=== PATIENT | female | born 1935 | race Caucasian/White ===

== ENCOUNTER 2017-02-13 17:36 | Emergency (ER) | payer OTHER ==
[~2017-02-13] VITALS: Ht 165.1 cm; Wt 92.0 kg
[~2017-02-13 17:36] MED LIST: ALPR0.25 PO; AMOX500T PO; ASPI1TAB7 PO; BIOT5000 PO; CALC-197 PO; CENTTAB9 PO; CETI10 PO; CORE3.12 PO; DEPA250T2 PO; FIORIC PO; FISHCAP PO; GARL1000 PO; MECL-62 PO; PROB1TAB PO; VITA400C70 PO; VITATAB11 PO; WELL200T PO
[2017-02-13 17:40] VITALS: BP 189/86; PULSE 66; RESP 20; TEMP 98.4; O2SAT 98
[2017-02-13] MEDS ORDERED: SODIUM CHLOR 0.9% 1000 ML INJ 1,000 ML IV ONE (19:30)
[2017-02-13] MEDS ORDERED: ONDANSETRON HCL 4 MG/2 ML VIAL IV ONE (19:30)
--- NOTE | 2017-02-13 19:37 | PD ---
HPI Chief Complaint: GI Complaint Time Seen by Provider: 19:18 Travel History International Travel<30 days: No Contact w/Intl Traveler<30days: No Traveled to known affect area: No History of Present Illness HPI The patient is a 81 year old female who presents to the [facility] emergency department with a history of projectile vomiting with moving her bowels that began approximately a month ago. She reports that she did see her primary care physician, Dr. Fajardo regarding this this past week. She reports that stool studies were done at that time, however she has not heard about the results. The patient reports that his symptoms were worsening that she decided to come to the emergency department today. She reports that she was previously followed by [facility] that is no longer in the area. She reports that she has recently been referred to Dr. Velasquez with a new appointment pending. The patient reports that she does have a history of C. difficile colitis that was resistant to treatment for approximate 7 months of the year 2012. The patient reports today that she's had bowel movements approximately every hour. She reports that her stools are light brown in color. She denies having any blood or mucus in her stool. She denies any sick contacts, recent antibiotic use, foreign travel, or camping. She reports having nausea today but no vomiting. I review systems, the patient reports having chronic shortness of breath over the last year. She reports that this is followed by . She reports that she was recently started on an albuterol inhaler. The patient denies any recent fevers, cough, congestion, neck pain, chest pain, new urinary symptoms, or neurologic symptoms. FORMERLY [facility], [facility]–1983 Past Medical History Narrative Medical The patient's past medical history is significant for mild coronary artery disease that is medically managed according to a cardiac catheterization, history of a leaky heart valve, history of C. difficile colitis in 2013, history of COPD, history of hypertension, hyperlipidemia, history of migraine headaches, history of arthritis, 5 years ago history of cholangitis Hx Anticoagulant Therapy: Yes Arthritis: Yes Asthma: Yes Autoimmune Disease: No Blood Disorders: No Anxiety: Yes Depression: Yes Heart Rhythm Problems: No Cancer: No Cardiac Catheterization: Yes (08/30) Cardiovascular Problems: Yes (CAD) High Cholesterol: Yes Chest Pain: No Congestive Heart Failure: No COPD: No Cerebrovascular Accident: Yes Coronary Artery Disease: Yes Diabetes: No Diminished Hearing: No Endocrine: No Gastrointestinal Disorders: No GERD: Yes Genitourinary: Yes Hiatal Hernia: No Hypertension: Yes Immune Disorder: No Implanted Vascular Access Dvce: Yes Kidney Stones: No Musculoskeletal: Yes Neurologic: Yes Psychiatric: Yes (CLAUSTROPHOBIA) Reproductive: No Respiratory: Yes (SLEEP APNEA) Immunizations Current: No Migraines: Yes Renal Failure: No Seizures: No Sleep Apnea: Yes (uses c-pap) Thyroid Disease: No Ulcer: No Menopausal: Yes Past Surgical History Narrative Surgical The patient's past surgical history is significant for a right total knee arthroplasty, left total arthroplasty. The patient has a history of 2 prior cardiac catheterizations without any angioplasty or stenting required. The patient has a history of hysterectomy. Abdominal Surgery: No Body Medical Devices: right groin vascular closure Cardiac Surgery: Yes (HEART CATH X 2) Ear Surgery: No Endocrine Surgery: No Eye Surgery: No Genitourinary Surgery: Yes (bladder suspension and repair ureter repair dilatation) Gynecologic Surgery: Yes (uterine suspension,hysterectomy) Hysterectomy: Yes Joint Replacement: Yes (BILAT TOTAL KNEES) Neurologic Surgery: No Oral Surgery: No Pacemaker: No Thoracic Surgery: No Other Surgery: Yes Social History Alcohol Use: No Tobacco Use: No Substance Use: No Allergies-Medications (Allergen,Severity, Reaction): Coded Allergies: Levaquin (Verified Allergy, Severe, NAUSEA/BLADDER PROBLEMS, 02/13/17) Urecholine (Verified Allergy, Severe, 02/13/17) b/p dropped Cipro (Unverified Adverse Reaction, Severe, CONSTRICTS BLADDER, 02/13/17) Reported Meds & Prescriptions Reported Meds & Active Scripts Active Zofran Odt (Ondansetron Odt) 4 Mg Tab 4 Mg SL Q6HR PRN Reported Xanax (Alprazolam) 0.5 Mg Tab 0.5 Mg PO TID PRN Amoxicillin 500 Mg Cap 2,000 Mg PO ONCE Aspirin 81 Mg Tabdr 81 Mg PO DAILY B Complex (B-Complex W/ Folic Acid) 1 Tab 1 Tab PO DAILY Biotin 10 Mg Tab 10 Mg PO DAILY Wellbutrin SR 12 HR (Bupropion HCl) 200 Mg Tab 200 Mg PO Q12HR Caltrate 600+D (Calcium Carbonate-Cholecalciferol) 600-800 Mg-Unit Tab 1 Tab PO BID Carvedilol 3.125 Mg Tab 3.125 Mg PO BID Zyrtec Allergy (Cetirizine HCl) 10 Mg Tab 10 Mg PO DAILY Depakote DR (Divalproex Sodium) 250 Mg Tabdr 250 Mg PO BID Garlic 1,000 Mg Cap 1,000 Mg PO DAILY Meclizine 25 (Meclizine HCl) 25 Mg Tab 25 Mg PO BID PRN Multi Vitamin and Mineral (Multiple Vitamins W/ Minerals) 1 Tab Tab 1 Tab PO DAILY Silver Point-3 1000 mg (Silver Point-3 Fatty Acids) 1 Cap Cap 1 Cap PO DAILY Probiotic (Probiotic Product) 1 Tab Tab 1 Tab PO DAILY Alph-E (Vitamin E) 400 Unit Cap 400 Units PO DAILY Review of Systems Except as stated in HPI: all other systems reviewed are Neg General / Constitutional: No: Fever Eyes: No: Visual changes HENT: No: Headaches Cardiovascular: No: Chest Pain or Discomfort Respiratory: Positive: Shortness of Breath (chronic shortness of breath) Gastrointestinal: Positive: Nausea, Vomiting, Diarrhea, Abdominal Pain, Changes in Bowel Habits Genitourinary: No: Dysuria Musculoskeletal: No: Pain Skin: No Rash Neurologic: No: Weakness Psychiatric: No: Depression Endocrine: No: Polydipsia Hematologic/Lymphatic: No: Easy Bruising Physical Exam Narrative General: The patient is a well-developed well-nourished female in no acute distress. Head and Neck exam: Head is normocephalic atraumatic. Eyes: EOMI, pupils are equal round and reactive to light. Nose: Midline septum with pink mucous membranes Mouth: Dentition unremarkable. Moist mucus membranes. Posterior oropharynx is not erythematous. No tonsillar hypertrophy. Uvula midline. Airway patent. Neck: No palpable lymphadenopathy. No nuchal rigidity. No thyromegaly. Cardiovascular: Regular rate and rhythm without murmurs, gallops, or rubs. Lungs: Clear to auscultation bilaterally. No wheezes, rhonchi, or rales. Abdomen: Soft, with tenderness on palpation of the midepigastric area and bilateral lower quadrants of the abdomen and suprapubic area, no focal tenderness over McBurney's point. Negative Vaughan's sign. No guarding, rebound, or rigidity. Normal bowel sounds are audible. Extremities: No clubbing, cyanosis, or edema. 2+ pulses in all 4 extremities. No calf tenderness on palpation. Back: No spinous process tenderness to palpation. No costovertebral angle tenderness to palpation. Neurologic Exam: Grossly nonfocal. Skin Exam: No rash noted. Intact skin that is warm and dry. Data Data Last Documented VS Vital Signs Date Time Temp Pulse Resp B/P Pulse Ox O2 Delivery O2 Flow Rate FiO2 02/13/17 19:58 63 18 98 02/13/17 17:40 98.4 189/86 Room Air Orders Electrocardiogram (02/13/17 19:20) Complete Blood Count With Diff (02/13/17 19:20) Comprehensive Metabolic Panel (02/13/17 19:20) C-Reactive Protein (Crp) (02/13/17 19:20) Lipase (02/13/17 19:20) Urinalysis - C+S If Indicated (02/13/17 19:20) Westergren Sedimentation Rate (02/13/17 19:20) Magnesium (Mg) (02/13/17 19:20) Valproic Acid (Depakene) (02/13/17 19:20) Enteric Path (Stool) (02/13/17 19:20) C Diff Toxin Pcr (02/13/17 19:20) Chest, Single Ap (02/13/17 19:20) Iv Access Insert/Monitor (02/13/17 19:20) Ecg Monitoring (02/13/17 19:20) Oximetry (02/13/17 19:20) Stool Wbc (Leukocytes) (02/13/17 19:20) Lactic Acid Sepsis Protocol (02/13/17 19:20) Sodium Chlor 0.9% 1000 Ml Inj (Ns 1000 M (02/13/17 19:30) Ondansetron Inj (Zofran Inj) (02/13/17 19:30) Ct Abd/Pel W Iv Contrast(Rout) (02/13/17 20:08) Iohexol 350 Inj (Omnipaque 350 Inj) (02/13/17 21:06) Labs Laboratory Tests Test 02/13/17 02/13/17 19:40 19:45 Urine Color LIGHT-YELLOW Urine Turbidity CLEAR Urine pH 7.0 Urine Specific Thayer 1.006 Urine Protein NEG mg/dL Urine Glucose (UA) NEG mg/dL Urine Ketones NEG mg/dL Urine Occult Blood NEG Urine Nitrite NEG Urine Bilirubin NEG Urine Urobilinogen LESS THAN 2.0 MG/DL Urine Leukocyte Esterase LARGE Urine RBC LESS THAN 1 /hpf Urine WBC 7 /hpf Urine Squamous Epithelial 1 /hpf Cells Microscopic Urinalysis Comment CULT NOT INDICATED White Blood Count 5.2 TH/MM3 Red Blood Count 4.59 MIL/MM3 Hemoglobin 14.2 GM/DL Hematocrit 41.0 % Mean Corpuscular Volume 89.3 FL Mean Corpuscular Hemoglobin 30.9 PG Mean Corpuscular Hemoglobin 34.6 % Concent Red Cell Distribution Width 13.0 % Platelet Count 227 TH/MM3 Mean Platelet Volume 9.0 FL Neutrophils (%) (Auto) 52.4 % Lymphocytes (%) (Auto) 33.2 % Monocytes (%) (Auto) 11.1 % Eosinophils (%) (Auto) 2.7 % Basophils (%) (Auto) 0.6 % Neutrophils # (Auto) 2.7 TH/MM3 Lymphocytes # (Auto) 1.7 TH/MM3 Monocytes # (Auto) 0.6 TH/MM3 Eosinophils # (Auto) 0.1 TH/MM3 Basophils # (Auto) 0.0 TH/MM3 CBC Comment DIFF FINAL Differential Comment Erythrocyte Sedimentation Rate 12 mm/hr Sodium Level 139 MEQ/L Potassium Level 4.5 MEQ/L Chloride Level 104 MEQ/L Carbon Dioxide Level 27.8 MEQ/L Anion Gap 7 MEQ/L Blood Urea Nitrogen 17 MG/DL Creatinine 0.99 MG/DL Estimat Glomerular Filtration 54 ML/MIN Rate Random Glucose 87 MG/DL Lactic Acid Level 0.5 mmol/L Calcium Level 9.4 MG/DL Magnesium Level 2.2 MG/DL Total Bilirubin 0.4 MG/DL Aspartate Amino Transf 33 U/L (AST/SGOT) Alanine Aminotransferase 22 U/L (ALT/SGPT) Alkaline Phosphatase 67 U/L C-Reactive Protein 0.40 MG/DL Total Protein 7.7 GM/DL Albumin 3.7 GM/DL Lipase 174 U/L Valproic Acid (Depakene) Level 50 MCG/ML MDM Medical Decision Making Medical Screen Exam Complete: Yes Emergency Medical Condition: Yes Medical Record Reviewed: Yes Interpretation(s) Last Impressions Abdomen/Pelvis CT 02/13/172007 Signed Impressions: Service Date/Time: Monday, February 13, 2017 20:57 - CONCLUSION: Negative CT abdomen/pelvis with contrast. Osmany Benson MD Chest X-Ray 02/13/171919 Signed Impressions: Service Date/Time: Monday, February 13, 2017 19:28 - CONCLUSION: The lungs are clear. Osmany Benson MD Differential Diagnosis Diverticulitis, versus colitis, versus, gastroenteritis, versus dehydration, versus electrolyte derangements Narrative Course During the course of the patients emergency department visit, the patients history, examination, and differential diagnosis were reviewed with the patient. The patient had IV access obtained and blood work sent for analysis. The patient was placed on a monitoring analyst with oximetry and blood pressure monitoring. A CT scan of the abdomen and pelvis has been ordered. An EKG was done on arrival that shows a sinus rhythm of 63, no acute ST segment elevation, or depression, T waves are inverted in V1. The patient was initially provided normal saline 1 L IV fluid bolus, Zofran 4 mg IV. The patients laboratory studies were reviewed and remarkable for a white count of 5.2, hemoglobin 14.2, platelets 227 with a monocytosis at 11.1, sedimentation rate is 12 , lactic acid 0.5, C-reactive protein 0.4, CMP is unremarkable and lipase 174, urinalysis shows large leukocyte esterase 7 WBCs, valproic acid level is 50 Radiology studies were reviewed and remarkable for an x-ray that shows no acute abnormality. CT scan of the abdomen and pelvis showed no acute abnormality. The patient was was reexamined and will be discharged home with a prescription for a nausea medication. The patient reports that she has a follow-up appointment scheduled with the colorectal physician, Dr. Velasquez for follow-up on February 28. The patient is resting comfortably and feels better, is alert and in no distress. The patients results and examination findings were discussed with the patient. The repeat examination is unremarkable and benign. The history, exam, diagnostic testing, and current condition do not suggest any significant pathology to warrant further testing, continued ED treatment, admission, or surgical evaluation at this point. The vital signs have been stable. The patient does not have uncontrollable pain, intractable vomiting, or other significant symptoms. The patient's condition is stable and appropriate for discharge. The patient will pursue further outpatient evaluation with a primary care physician or other designated or consulting physician as indicated in the discharge instructions. The patient expressed understanding and was agreeable with this plan. Diagnosis Primary Impression: Vomiting Qualified Code: R11.2 - Non-intractable vomiting with nausea, unspecified vomiting type Additional Impression: Diarrhea Qualified Code: R19.7 - Diarrhea, unspecified type Referrals: Lock Operator 1 week Primary Care Physician 3 days Patient Instructions: Acute Diarrhea (ED), Acute Nausea and Vomiting (ED), General Instructions Med/Other Pt SpecificInfo: Prescription(s) given Scripts Ondansetron Odt (Zofran Odt)4 Mg Tab4 Mg SL Q6HR PRN (Nausea/Vomiting) #7 TAB Ref 0 Prov:Alicia Miranda MD 02/13/17 Disposition: 01 DISCHARGE HOME Condition: Stable Alicia Miranda MD Feb 13, 2017 19:36
--- NOTE | 2017-02-13 19:44 | RADRPT ---
EXAM DATE/TIME: 02/13/2017 19:28 [facility] COMPARISON: CHEST SINGLE AP, May 31, 2015, 17:45. INDICATIONS : Vomiting MEDICAL HISTORY : None. SURGICAL HISTORY : None. ENCOUNTER: Initial ACUITY: 1 month PAIN SCORE: 0/10 LOCATION: Bilateral chest FINDINGS: A single view of the chest demonstrates the lungs to be symmetrically aerated without evidence of mas s, infiltrate or effusion. The cardiomediastinal contours are unremarkable. Osseous structures are intact. CONCLUSION: The lungs are clear. Osmany Benson MD on February 13, 2017 at 19:42 Board Certified Radiologist. This report was verified electronically.
[2017-02-13 19:58] VITALS: PULSE 63; RESP 18; O2SAT 98
[2017-02-13 20:13] LABS: AUTOMATED NEUTROPHIL # 2.7 TH/MM3 (1.8-7.7); BASOPHIL % 0.6 % (0.0-2.0); EOSINOPHIL # 0.1 TH/MM3 (0-0.4); EOSINOPHIL % 2.7 % (0.0-4.0); HEMO FLAGS DIFF FINAL; LYMPH % 33.2 % (9.0-44.0); LYMPHOCYTE # 1.7 TH/MM3 (1.0-4.8); MEAN CELL VOLUME 89.3 FL (80.0-100.0); MEAN CORPUSCULAR HEMOGLOBIN 30.9 PG (27.0-34.0); MEAN CORPUSCULAR HGB CONC 34.6 % (32.0-36.0); MONO % 11.1 % (0.0-8.0); NEUT % 52.4 % (16.0-70.0); PLATELET COUNT 227 TH/MM3 (150-450); RED BLOOD COUNT 4.59 MIL/MM3 (4.00-5.30); WHITE BLOOD COUNT 5.2 TH/MM3 (4.0-11.0)
[2017-02-13 20:14] LABS: BLOOD, URINE NEG (NEG); COMMENT (UR) CULT NOT INDICATED; CULTURE IF INDICATED CULT NOT INDICATED; GLUCOSE,URINE NEG (NEG); KETONE, URINE NEG (NEG); NITRITE,URINE NEG (NEG); SQUAMOUS EPITHELIAL CELL URINE 1 /hpf (0-5); URINE COLOR LIGHT-YELLOW (YELLW/STRAW)
[2017-02-13] MEDS ORDERED: ALPH400C2 PO (20:26)
[2017-02-13] MEDS ORDERED: PROB1TAB PO (20:26)
[2017-02-13] MEDS ORDERED: GARL1CAP PO (20:36)
[2017-02-13] MEDS ORDERED: ALPR.5 PO (20:36)
[2017-02-13] MEDS ORDERED: WELL200T PO (20:36)
[2017-02-13] MEDS ORDERED: ASPI1TAB69 PO (20:36)
[2017-02-13] MEDS ORDERED: DEPA250T2 PO (20:36)
[2017-02-13] MEDS ORDERED: OMEG1000 PO (20:36)
[2017-02-13] MEDS ORDERED: ZYRT10TA PO (20:36)
[2017-02-13] MEDS ORDERED: B COTAB3 PO (20:36)
[2017-02-13] MEDS ORDERED: AMOX500C PO (20:36)
[2017-02-13] MEDS ORDERED: BIOT10TA PO (20:36)
[2017-02-13] MEDS ORDERED: CARV3.12 PO (20:36)
[2017-02-13] MEDS ORDERED: ASPI1TAB7 PO (20:36)
[2017-02-13] MEDS ORDERED: MULT-142 PO (20:36)
[2017-02-13] MEDS ORDERED: MECL1TAB42 PO (20:36)
[2017-02-13] MEDS ORDERED: AMOX500T PO (20:36)
[2017-02-13] MEDS ORDERED: CALTTAB PO (20:36)
[2017-02-13 20:47] LABS: ALKALINE PHOSPHATASE 67 U/L (45-117); ALT (GPT) 22 U/L (10-53); ANION GAP 7 MEQ/L (5-15); AST (GOT) 33 U/L (15-37); BICARBONATE 27.8 MEQ/L (21.0-32.0); BLOOD UREA NITROGEN 17 MG/DL (7-18); CHLORIDE 104 MEQ/L (98-107); GLOMERULAR FILTRATION RATE 54 ML/MIN (>89); MAGNESIUM 2.2 MG/DL (1.5-2.5); SODIUM (NA) 139 MEQ/L (136-145); TOTAL BILIRUBIN ADULT 0.4 MG/DL (0.2-1.0)
[2017-02-13 20:48] LABS: POTASSIUM 4.5 MEQ/L (3.5-5.1)
[2017-02-13] MEDS ORDERED: IOHEXOL 350 MG/ML 10 ML VIAL (for RAD DIAG) IV ONE (21:06)
[2017-02-13] MEDS ORDERED: ZOFR4TAB3 SL (21:14)
--- NOTE | 2017-02-13 21:26 | RADRPT ---
EXAM DATE/TIME: 02/13/2017 20:57 [facility] COMPARISON: No previous studies available for comparison. INDICATIONS : Nausea, vomiting and diarrhea for 1 week. IV CONTRAST: 100 cc Omnipaque 350 (iohexol) IV ORAL CONTRAST: No oral contrast ingested. RADIATION DOSE: 10.43 CTDIvol (mGy) MEDICAL HISTORY : Cardiovascular disease. Hypertension. CVA. SURGICAL HISTORY : Hysterectomy. ENCOUNTER: Initial ACUITY: 1 week PAIN SCALE: 2/10 LOCATION: Bilateral abomen TECHNIQUE: Volumetric scanning of the abdomen and pelvis was performed. Using automated exposure control and ad justment of the mA and/or kV according to patient size, radiation dose was kept as low as reasonably achievable to obtain optimal diagnostic quality images. FINDINGS: LOWER LUNGS: The visualized lower lungs are clear. LIVER: Homogeneous density without lesion. There is no dilation of the biliary tree. No calcified gallston es. SPLEEN: Normal size without lesion. PANCREAS: Within normal limits. KIDNEYS: Normal in size and shape. There is no mass, stone or hydronephrosis. ADRENAL GLANDS: Within normal limits. VASCULAR: There is no aortic aneurysm. BOWEL/MESENTERY: The stomach, small bowel, and colon demonstrate no acute abnormality. There is no free intraperitone al air or fluid. ABDOMINAL WALL: Within normal limits. RETROPERITONEUM: There is no lymphadenopathy. BLADDER: No wall thickening or mass. REPRODUCTIVE: Within normal limits. INGUINAL: There is no lymphadenopathy or hernia. MUSCULOSKELETAL: Within normal limits for patient age. CONCLUSION: Negative CT abdomen/pelvis with contrast. Osmany Benson MD on February 13, 2017 at 21:22 Board Certified Radiologist. This report was verified electronically.
[2017-02-13 22:25] VITALS: BP 180/86
--- NOTE | 2017-02-15 13:15 | EKG ---
Date Performed: 02/13/2017 Time Performed: 19:57:59 PTAGE: 81 years EKG: NORMAL Sinus rhythm NORMAL ECG PREVIOUS TRACING : 04/26/2016 16.51 No significant change from previous tracing noted. DOCTOR: Gurjit Phillips Interpretating Date/Time 02/15/2017 13:14:19
== END 2017-02-13 22:29 | disposition home or self-care (01) ==
LOC: NEPC 17:36
DX: R11.2 Nausea with vomiting, unspecified (principal); J44.9 Chronic obstructive pulmonary disease, unspecified; I10 Essential (primary) hypertension; I25.10 Atherosclerotic heart disease of native coronary artery without angina pectoris; Z86.19 Personal history of other infectious and parasitic diseases; G47.30 Sleep apnea, unspecified
CPT/HCPCS: 71010; 74177; 80053; 80164; 81001; 83605; 83690; 83735; 85025; 85652; 86140; 93005; 96374; 99284; J2405; J7030; Q9967

== ENCOUNTER 2017-11-11 16:35 | Inpatient (IN) | payer OTHER, MEDICARE ==
[2017-11-11] MEDS ORDERED: SODIUM CHLORIDE 0.9% FLUSH 10 ML FLUSH IVF (18:30)
[2017-11-11] MEDS: ONDANSETRON HCL 4 MG/2 ML VIAL IV PUSH (19:27)
[2017-11-11] MEDS: MORPHINE SULFATE 4 MG/ML INJ IV PUSH (19:27)
[2017-11-11] MEDS ORDERED: BISACODYL 10 MG SUPP RECTAL (19:30)
[2017-11-11] MEDS ORDERED: MAGNESIUM HYDROXIDE SUSP 30 ML CUP PO (19:30)
[2017-11-11] MEDS ORDERED: SENNOSIDES 8.6 MG TAB PO (19:30)
[2017-11-11] MEDS ORDERED: LACTULOSE SYRUP 20 GM/30 ML CUP PO (19:30)
[2017-11-11] MEDS ORDERED: LIDOCAINE 1%/EPINEPHrine 1:100,000 SOLN 20 ML VIAL INFIL (19:45)
[2017-11-11 20:04] LABS: AUTOMATED NEUTROPHIL # 6.1 TH/MM3 (1.8-7.7); BASOPHIL % 0.4 % (0.0-2.0); EOSINOPHIL # 0.1 TH/MM3 (0-0.4); EOSINOPHIL % 1.4 % (0.0-4.0); HEMATOCRIT 39.5 % (35.0-46.0); HEMO FLAGS DIFF FINAL; HEMOGLOBIN 13.3 GM/DL (11.6-15.3); LYMPH % 15.5 % (9.0-44.0); LYMPHOCYTE # 1.2 TH/MM3 (1.0-4.8); MEAN CELL VOLUME 92.2 FL (80.0-100.0); MEAN CORPUSCULAR HGB CONC 33.6 % (32.0-36.0); MEAN PLATELET VOLUME 8.6 FL (7.0-11.0); MONO % 5.2 % (0.0-8.0); MONOCYTE # 0.4 TH/MM3 (0-0.9); NEUT % 77.5 % (16.0-70.0); PLATELET COUNT 213 TH/MM3 (150-450); RED BLOOD COUNT 4.28 MIL/MM3 (4.00-5.30); RED CELL DISTRIBUTION WIDTH 13.5 % (11.6-17.2); WHITE BLOOD COUNT 7.8 TH/MM3 (4.0-11.0)
[2017-11-11] MEDS: LIDOCAINE HCL 1% 50 ML VIAL INFIL (20:18)
[2017-11-11 20:20] LABS: APTT (PATIENT) 26.2 SEC (24.3-30.1); PROTHROMBIN TIME - PATIENT 10.1 SEC (9.8-11.6)
[2017-11-11] MEDS: MORPHINE SULFATE 2 MG/ML INJ IV PUSH (20:20)
[2017-11-11 20:22] LABS: ALBUMIN 3.5 GM/DL (3.4-5.0); ANION GAP 9 MEQ/L (5-15); AST (GOT) 14 U/L (15-37); BICARBONATE 27.5 MEQ/L (21.0-32.0); BLOOD UREA NITROGEN 14 MG/DL (7-18); CALCIUM 8.7 MG/DL (8.5-10.1); CHLORIDE 105 MEQ/L (98-107); CREATININE 0.92 MG/DL (0.50-1.00); GLOMERULAR FILTRATION RATE 59 ML/MIN (>89); GLUCOSE,RANDOM 91 MG/DL (74-106); POTASSIUM 4.3 MEQ/L (3.5-5.1); SODIUM (NA) 141 MEQ/L (136-145)
[2017-11-11 20:24] LABS: ALT (GPT) 23 U/L (10-53)
[2017-11-11 20:27] LABS: ALKALINE PHOSPHATASE 58 U/L (45-117); TOTAL BILIRUBIN ADULT 0.3 MG/DL (0.2-1.0); TOTAL PROTEIN 6.9 GM/DL (6.4-8.2)
[2017-11-11] MEDS: DOCUSATE SODIUM 50 MG/SENNA 8.6 MG TAB PO (21:52)
[2017-11-11] MEDS: buPROPion HCL 100 MG SUSTAINED RELEASE TAB PO (21:52)
[2017-11-11] MEDS: CARVEDILOL 3.125 MG TAB PO (21:52)
[2017-11-11] MEDS: ALPRAZolam 0.5 MG TAB PO (21:52)
[2017-11-11] MEDS: DIVALPROEX SODIUM DELAYED RELEASE 250 MG TAB PO (21:53)
[2017-11-11] MEDS: SODIUM CHLORIDE 0.9% FLUSH 10 ML FLUSH IV FLUSH (21:55)
[2017-11-12] MEDS ORDERED: CHLORHEXIDINE GLUCONATE 2 % 1 PACK (2 CLOTHS) TOPICAL (00:15)
[2017-11-12] MEDS ORDERED: POVIDONE IODINE 5% (ANTISEPSIS KIT) 4 APPLICATIONS EACH NARE (00:15)
[2017-11-12] MEDS ORDERED: SODIUM CHLORID 0.9% 500 ML IV (00:15)
[2017-11-12] MEDS: ONDANSETRON HCL 4 MG/2 ML VIAL IVP (03:18)
[2017-11-12] MEDS: SODIUM CHLORIDE 0.9% FLUSH 10 ML FLUSH IV FLUSH ×3 (03:19→21:00)
[2017-11-12] MEDS: MORPHINE SULFATE 2 MG/ML INJ IV PUSH ×2 (03:19→08:07)
[2017-11-12] MEDS: LACTATED RINGER'S 1000 ML IV (03:25)
[2017-11-12] MEDS: SODIUM CHLOR 0.9% 1000 ML INJ 1,000 ML IV ×3 (03:25→18:44)
[2017-11-12 08:01] LABS: BASOPHIL % 0.4 % (0.0-2.0); EOSINOPHIL # 0.1 TH/MM3 (0-0.4); EOSINOPHIL % 0.9 % (0.0-4.0); HEMATOCRIT 36.5 % (35.0-46.0); HEMO FLAGS DIFF FINAL; HEMOGLOBIN 12.4 GM/DL (11.6-15.3); LYMPH % 20.7 % (9.0-44.0); LYMPHOCYTE # 1.5 TH/MM3 (1.0-4.8); MEAN CELL VOLUME 93.7 FL (80.0-100.0); MEAN CORPUSCULAR HEMOGLOBIN 31.8 PG (27.0-34.0); MEAN PLATELET VOLUME 8.6 FL (7.0-11.0); MONO % 9.1 % (0.0-8.0); MONOCYTE # 0.7 TH/MM3 (0-0.9); NEUT % 68.9 % (16.0-70.0); PLATELET COUNT 202 TH/MM3 (150-450); RED BLOOD COUNT 3.89 MIL/MM3 (4.00-5.30); RED CELL DISTRIBUTION WIDTH 13.3 % (11.6-17.2); WHITE BLOOD COUNT 7.3 TH/MM3 (4.0-11.0)
[2017-11-12] MEDS: CARVEDILOL 3.125 MG TAB PO ×2 (08:06→23:07)
[2017-11-12] MEDS: buPROPion HCL 100 MG SUSTAINED RELEASE TAB PO ×2 (08:06→22:45)
[2017-11-12 08:08] LABS: ANION GAP 8 MEQ/L (5-15); AST (GOT) 12 U/L (15-37); BICARBONATE 25.7 MEQ/L (21.0-32.0); BLOOD UREA NITROGEN 14 MG/DL (7-18); CALCIUM 8.2 MG/DL (8.5-10.1); CHLORIDE 105 MEQ/L (98-107); CREATININE 0.77 MG/DL (0.50-1.00); GLOMERULAR FILTRATION RATE 72 ML/MIN (>89); GLUCOSE,RANDOM 97 MG/DL (74-106); POTASSIUM 4.3 MEQ/L (3.5-5.1); SODIUM (NA) 139 MEQ/L (136-145)
[2017-11-12 08:09] LABS: ALT (GPT) 19 U/L (10-53)
[2017-11-12 08:11] LABS: ALKALINE PHOSPHATASE 51 U/L (45-117); TOTAL BILIRUBIN ADULT 0.3 MG/DL (0.2-1.0); TOTAL PROTEIN 5.9 GM/DL (6.4-8.2)
[2017-11-12] MEDS: DIVALPROEX SODIUM DELAYED RELEASE 250 MG TAB PO ×2 (08:13→22:44)
[2017-11-12] MEDS: DOCUSATE SODIUM 50 MG/SENNA 8.6 MG TAB PO ×3 (08:14→22:47)
[2017-11-12] MEDS: MULTIVITAMINS/MINERALS THERAPEUTIC TAB PO (08:14)
[2017-11-12] MEDS ORDERED: ACETAMINOPHEN 1000 MG/100 ML 100 ML IV (10:51)
[2017-11-12] MEDS ORDERED: APREPITANT 40 MG CAP (10:54)
[2017-11-12] MEDS: ceFAZolin INJ 1,000 MG VIAL (11:30)
[2017-11-12] MEDS: LIDOCAINE HCL 1% PF 5 ML SYRINGE OTHER (12:00)
[2017-11-12] MEDS: GLYCOPYRROLATE 1 MG/5 ML SYRINGE IV PUSH (12:00)
[2017-11-12] MEDS: GENTAMICIN SULFATE 80 MG/2 ML VIAL (12:00)
[2017-11-12] MEDS: NEOSTIGMINE 5 MG/5 ML SYRINGE IV PUSH (12:00)
[2017-11-12] MEDS: PROPOFOL 200 MG/20 ML AMP IV (12:00)
[2017-11-12] MEDS: ONDANSETRON HCL 4 MG/2 ML VIAL IV (12:00)
[2017-11-12] MEDS: ROCURONIUM INJ 50 MG/5 ML SYRINGE IV PUSH (12:00)
[2017-11-12] MEDS: DEXAMETHASONE SOD PHOS 4 MG/ML VIAL IV (12:00)
[2017-11-12] MEDS ORDERED: oxyCODONE/ACETAMINOPHEN 5 MG/325 MG TAB PO (12:30)
[2017-11-12] MEDS ORDERED: PROMETHAZINE HCL 25 MG TAB PO (12:30)
[2017-11-12] MEDS ORDERED: MORPHINE SULFATE 8 MG/ML INJ IV PUSH (12:30)
[2017-11-12] MEDS ORDERED: DO NOT ADM ANY ANTICOAGULANT DRUGS (13:04)
[2017-11-12] MEDS ORDERED: MIDAZOLAM HCL 2 MG/2 ML VIAL (13:09)
[2017-11-12] MEDS: *morphine SULFATE 4 MG/ML PERIprocedure ONLY ×2 (13:10→13:33)
[2017-11-12] MEDS ORDERED: Post-op Orders (for Pharmacy) XX (13:30)
[2017-11-12] MEDS ORDERED: SENNOSIDES 8.6 MG TAB PO (13:30)
[2017-11-12] MEDS ORDERED: BISACODYL 10 MG SUPP RECTAL (13:30)
[2017-11-12] MEDS ORDERED: SODIUM CHLORIDE 0.9% FLUSH 10 ML FLUSH IV FLUSH (13:30)
[2017-11-12] MEDS: *LABETALOL HCL 100 MG/20 ML VIAL PERIprocedural Use ONLY (13:40)
[2017-11-12] MEDS: KETOROLAC TROMETHAMINE 30 MG/ML (IVP) VIAL IVP ×3 (14:00→22:53)
[2017-11-12] MEDS: diphenhydrAMINE HCL 50 MG/ML VIAL IV PUSH (15:12)
[2017-11-12] MEDS ORDERED: ZOLPIDEM TARTRATE 5 MG TAB PO (21:00)
[2017-11-12] MEDS: ALPRAZolam 0.5 MG TAB PO (23:02)
[2017-11-13] MEDS: SODIUM CHLOR 0.9% 1000 ML INJ 1,000 ML IV ×3 (01:21→21:21)
[2017-11-13] MEDS: ENOXAPARIN SODIUM 30 MG/0.3 ML SYRINGE SQ ×2 (01:22→15:39)
[2017-11-13] MEDS: KETOROLAC TROMETHAMINE 30 MG/ML (IVP) VIAL IVP ×4 (02:00→21:46)
[2017-11-13] MEDS: DOCUSATE SODIUM 50 MG/SENNA 8.6 MG TAB PO ×2 (09:00→22:06)
[2017-11-13] MEDS: SODIUM CHLORIDE 0.9% FLUSH 10 ML FLUSH IV FLUSH ×2 (09:00→21:50)
[2017-11-13] MEDS: CARVEDILOL 3.125 MG TAB PO ×2 (09:34→22:07)
[2017-11-13] MEDS: buPROPion HCL 100 MG SUSTAINED RELEASE TAB PO ×2 (09:35→22:07)
[2017-11-13] MEDS: MULTIVITAMINS/MINERALS THERAPEUTIC TAB PO (09:35)
[2017-11-13] MEDS: DIVALPROEX SODIUM DELAYED RELEASE 250 MG TAB PO ×2 (09:35→22:07)
[2017-11-13] MEDS: LACTULOSE SYRUP 20 GM/30 ML CUP PO (22:06)
[2017-11-14] MEDS: ONDANSETRON HCL 4 MG/2 ML VIAL IVP ×2 (00:13→12:19)
[2017-11-14] MEDS: MAGNESIUM HYDROXIDE SUSP 30 ML CUP PO (00:13)
[2017-11-14] MEDS: MECLIZINE HCL 25 MG TAB PO ×2 (00:14→12:19)
[2017-11-14] MEDS: ENOXAPARIN SODIUM 30 MG/0.3 ML SYRINGE SQ ×2 (00:14→12:20)
[2017-11-14] MEDS: KETOROLAC TROMETHAMINE 30 MG/ML (IVP) VIAL IVP ×2 (03:50→09:55)
[2017-11-14] MEDS: SODIUM CHLOR 0.9% 1000 ML INJ 1,000 ML IV ×2 (07:21→17:21)
[2017-11-14] MEDS: DOCUSATE SODIUM 50 MG/SENNA 8.6 MG TAB PO ×2 (09:54→20:27)
[2017-11-14] MEDS: buPROPion HCL 100 MG SUSTAINED RELEASE TAB PO ×2 (09:54→20:27)
[2017-11-14] MEDS: DIVALPROEX SODIUM DELAYED RELEASE 250 MG TAB PO ×2 (09:54→20:27)
[2017-11-14] MEDS: CARVEDILOL 3.125 MG TAB PO ×2 (09:54→20:27)
[2017-11-14] MEDS: MULTIVITAMINS/MINERALS THERAPEUTIC TAB PO (09:54)
[2017-11-14] MEDS: SODIUM CHLORIDE 0.9% FLUSH 10 ML FLUSH IV FLUSH ×2 (09:57→20:27)
[2017-11-14] MEDS: ACETAMINOPHEN 325 MG TAB PO ×2 (12:19→20:28)
[2017-11-14] MEDS: ALPRAZolam 0.5 MG TAB PO ×2 (12:26→20:28)
[2017-11-15] MEDS: ENOXAPARIN SODIUM 30 MG/0.3 ML SYRINGE SQ ×2 (00:49→14:45)
[2017-11-15] MEDS: SODIUM CHLOR 0.9% 1000 ML INJ 1,000 ML IV ×2 (00:49→13:21)
[2017-11-15] MEDS: CARVEDILOL 3.125 MG TAB PO (08:00)
[2017-11-15] MEDS: SODIUM CHLORIDE 0.9% FLUSH 10 ML FLUSH IV FLUSH (08:01)
[2017-11-15] MEDS: DIVALPROEX SODIUM DELAYED RELEASE 250 MG TAB PO (08:01)
[2017-11-15] MEDS: MULTIVITAMINS/MINERALS THERAPEUTIC TAB PO (08:01)
[2017-11-15] MEDS: DOCUSATE SODIUM 50 MG/SENNA 8.6 MG TAB PO (08:01)
[2017-11-15] MEDS: buPROPion HCL 100 MG SUSTAINED RELEASE TAB PO (08:01)
[2017-11-15] MEDS: ALPRAZolam 0.5 MG TAB PO (08:05)
[2017-11-15] MEDS: oxyCODONE/ACETAMINOPHEN 5 MG/325 MG TAB PO (14:49)
[2017-11-15] MEDS: ACETAMINOPHEN/HYDROcodone 325 MG/5 MG TAB PO (17:50)
== END 2017-11-15 18:53 | DRG 494 ==
LOC: NEDAMB 16:35 → NEDA 19:17 → N06B 20:55
PROC: 0QSJ04Z Reposition Right Fibula with Internal Fixation Device, Open Approach (ICD-10-PCS; principal; 2017-11-12 11:14)
PROC: 0QSG04Z Reposition Right Tibia with Internal Fixation Device, Open Approach (ICD-10-PCS; 2017-11-12 11:14)
PROC: 0HQ0XZZ Repair Scalp Skin, External Approach (ICD-10-PCS; 2017-11-12 11:14)
DX: S82.841A Displaced bimalleolar fracture of right lower leg, initial encounter for closed fracture (principal); I10 Essential (primary) hypertension; S01.01XA Laceration without foreign body of scalp, initial encounter; W18.30XA Fall on same level, unspecified, initial encounter; Y92.009 Unspecified place in unspecified non-institutional (private) residence as the place of occurrence of the external cause; R42 Dizziness and giddiness; I25.10 Atherosclerotic heart disease of native coronary artery without angina pectoris; G47.30 Sleep apnea, unspecified; E78.5 Hyperlipidemia, unspecified; Z96.653 Presence of artificial knee joint, bilateral; Z79.82 Long term (current) use of aspirin; F32.9 Major depressive disorder, single episode, unspecified; F41.9 Anxiety disorder, unspecified
CPT/HCPCS: 12001; 70450; 71045; 73590; 73610; 76000; 80053; 85025; 85610; 85730; 93005; 94150; 97110-GP; 97116-GP; 97163-GP; 97530-GP; 99285-25